=== PATIENT | male | born 1970 | race Caucasian/White ===

== ENCOUNTER 2017-09-29 11:51 | Emergency (ER) | payer OTHER ==
[~2017-09-29] VITALS: Ht 190.5 cm; Wt 95.5 kg
[2017-09-29 15:09] VITALS: BP 120/79
== END 2017-09-29 15:57 | disposition home or self-care (01) ==
LOC: EMS 11:53
DX: T51.0X1A Toxic effect of ethanol, accidental (unintentional), initial encounter (principal); F17.210 Nicotine dependence, cigarettes, uncomplicated; F12.90 Cannabis use, unspecified, uncomplicated; Z59.0 Homelessness
CPT/HCPCS: 99284